=== PATIENT | female | born 1980 | race Two or more races ===

== ENCOUNTER 2021-01-04 14:09 | Emergency (ER) | payer SELFPAY ==
[~2021-01-04] VITALS: Ht 165.1 cm; Wt 77.1 kg
--- NOTE | 2021-01-04 15:14 | NUR ---
WILLIAM WARNER AT BEDSIDE FOR EVAL
[2021-01-04] MEDS ORDERED: TRAMADOL HCL 50 MG TABLET PO ONE (15:30)
[2021-01-04] MEDS ORDERED: TRAMADOL HCL 50 MG TABLET ONE (15:40)
--- NOTE | 2021-01-04 16:25 | NUR ---
TEST PENDING FOR XRAY/CT
--- NOTE | 2021-01-04 16:39 | NUR ---
PATIENT SIGNED WAIVER FORM. STATED "HAD TUBAL LIGATION 15 YEARS AGO".
[2021-01-04] MEDS ORDERED: IBUP-1955 PO (17:28)
[2021-01-04] MEDS ORDERED: TRAM50TA2 PO (17:28)
[2021-01-04 18:12] VITALS: BP 139/68
--- NOTE | 2021-01-04 18:12 | NUR ---
Patient discharged to home in stable condition. Written and verbal after care instructions given. Patient verbalizes understanding of instruction.
== END 2021-01-04 18:13 | disposition home or self-care (01) ==
LOC: ER 14:12
DX: S16.1XXA Strain of muscle, fascia and tendon at neck level, initial encounter (principal); S39.012A Strain of muscle, fascia and tendon of lower back, initial encounter; S79.911A Unspecified injury of right hip, initial encounter; V39.50XA Passenger in three-wheeled motor vehicle injured in collision with unspecified motor vehicles in traffic accident, initial encounter; Y93.89 Activity, other specified; Y92.413 State road as the place of occurrence of the external cause; Y99.8 Other external cause status
CPT/HCPCS: 72110-TC; 72125-TC; 73502